=== PATIENT | male | born 1980 ===

== ENCOUNTER 2021-01-19 23:00 | Emergency (ER) | payer OTHER ==
[2021-01-19] MEDS ORDERED: SODIUM CHLORIDE 0.9% 1,000 ML IV STA (23:11)
[2021-01-19] MEDS ORDERED: ONDANSETRON 4 MG/2 ML VIAL IVP STA (23:11)
[2021-01-19] MEDS ORDERED: SODIUM CHLORIDE 0.9% 500 ML 500 ML IV STA (23:11)
[2021-01-19] MEDS ORDERED: PANTOPRAZOLE 40 MG/10 ML VIAL IVP STA (23:11)
[2021-01-19 23:28] VITALS: TEMP 98.7
--- NOTE | 2021-01-19 23:30 | ED ---
Recheck HPI - General Chief Complaint: Altered Mental Status Stated Complaint: Altered Mental Status Time Seen by Provider: 01/19/21 23:05 Source: EMS, RN notes reviewed, old records reviewed Mode of arrival: EMS Limitations: altered mental status, physical limitation - History of Present Illness Initial Comments: This is a 41-year-old male who is accepted in transfer. Patient presents as transfer from [facility] for evaluation regarding multifactorial respiratory failure. History for the most part was unknown although he has no history of needing dialysis in the past as well as liver failure. Patient is a polysubstance drug abuser per history with alcohol as well as IV drugs. Patient is intubated and sedated currently MD Complaint: abnormal lab, other (Respiratory failure) -: hour(s) Returns Today for: Called Because of Abnormal Lab/Test, other (Patient tr ansferred to higher care) Symptoms Since Prior Visit: no new symptoms Context: other (Patient was transferred to high level of care) Associated Symptoms: shortness of breath Treatments Prior to Arrival: IV/IO, urinary catheter in place - Related Data Allergies Allergy/AdvReac Type Severity Reaction Status Date / Time erythromycin base Allergy Anaphylaxis Verified 01/20/21 01:23 Review of Systems ROS Statement: Those systems with pertinent positive or pertinent negative responses have been documented in the HPI. ROS Other: All systems not noted in ROS Statement are negative. Past Medical History Past Medical History: Dialysis, Liver Disease, Renal Disease History of Any Multi-Drug Resistant Organisms: MRSA Past Surgical History: No Surgical Hx Reported Past Psychological History: No Psychological Hx Reported Smoking Status: Current every day smoker Past Alcohol Use History: Abuse Past Drug Use History: Heroin, IV Drug Use General Exam - General Exam Comments Initial Comments: Patient is intubated, tube placement Patient is sedated Limitations: altered mental status, physical limitation General appearance: obtunded, in distress, obese, other (jaundice) Head exam: Present: atraumatic, normocephalic, normal inspection Eye exam: Present: normal appearance. Absent: scleral icterus, conjunctival injection, periorbital swelling ENT exam: Present: normal exam, mucous membranes moist Neck exam: Present: normal inspection. Absent: tenderness, meningismus, lymp hadenopathy Respiratory exam: Present: rales, rhonchi, decreased breath sounds. Absent: respiratory distress, wheezes, stridor Cardiovascular Exam: Present: regular rate, normal rhythm, normal heart sounds. Absent: systolic murmur, diastolic murmur, rubs, gallop, clicks GI/Abdominal exam: Present: soft, normal bowel sounds. Absent: distended, tenderness, guarding, rebound, rigid Rectal exam: Present: deferred Extremities exam: Present: normal inspection, full ROM, normal capillary refill. Absent: pedal edema, joint swelling Back exam: Present: normal inspection Neurological exam: Present: alert, oriented X3, CN II-XII intact Skin exam: Present: warm, dry, intact, pallor, mottled. Absent: rash Course Vital Signs 01/19/21 01/19/21 01/19/21 23:19 23:38 23:40 Temperature 98.7 F Pulse Rate 78 58 L 23 L Respiratory 28 H 15 Rate Blood Pressure 61/40 72/35 62/35 O2 Sat by Pulse 91 L 72 L 71 L Oximetry 01/20/21 00:06 Temperature Pulse Rate 35 L Respiratory 22 Rate Blood Pressure 63/40 O2 Sat by Pulse Oximetry - Reevaluation(s) Reevaluation #1: 01/10/21 23:11 Medical record is reviewed Spoke with transferring physician regarding patient Reevaluation #2: 01/20/21 02:12 Patient has bradycardic cardiac arrest Initially suspect arrests is multifactorial severe acidosis, severe low blood sugar secondary to liver disease, elevated potassium was without prior labs prior to transfer all of which were treated during ACLS protocol without help or improvement Patient had respiratory acidosis and metabolic acidosis severe Reevaluation #3: 01/20/21 02:13 Patient reevaluated after ACLS protocol with no return of spontaneous circulation Patient is pronounced at 00:42 of 01/20/21 On examination patient's pupils are fixed and dilated no heart sounds are noted no respirations Ultrasound cardiac shows no cardiac activity Reevaluation #4: 01/20/21 02:14 Spoke with medical doctor patient will go to more Reevaluation #5: 01/20/21 02:14 I did speak with the patient's sister who is aware of the patient's passing Procedures - Central Line Placement Left Femoral Consent Obtained: emergent situation Patient Placed on Monitor/Pulse Ox: Yes Prep: mask, gown, gloves Central Line Prep: Povidone-Iodine 1% Ultrasound Used for Placement: Yes Central Line Lumen Inserted: triple Bloods Obtained for Lab: Yes Central Line Position: good blood return, all ports aspirated, flushed, capped Dressing Applied: Tegaderm Patient Tolerated Procedure: well Complications: none Medical Decision Making - Medical Decision Making 5-year-old male who did have cardiac arrest here in the emergency department was accepted as a transfer patient. Patient was intubated sedated and eventually had cardiac arrests. A she'll for close follow-up with no return of spontaneous circulation - Lab Data Result diagrams: 01/19/21 23:56 01/19/21 23:56 Lab Results 01/19/21 01/19/21 01/19/21 Range/Units 23:56 23:56 23:56 WBC 33.7 H (3.8-10.6) k/uL RBC 2.34 L (4.30-5.90) m/uL Hgb 9.4 L (13.0-17.5) gm/dL Hct 28.5 L (39.0-53.0) % MCV 121.7 H (80.0-100.0) fL MCH 40.0 H (25.0-35.0) pg MCHC 32.9 (31.0-37.0) g/dL RDW 13.8 (11.5-15.5) % Plt Count 242 (150-450) k/uL MPV 8.7 Hypochromasia Moderate Macrocytosis Marked A PT 26.3 H (9.0-12.0) sec INR 2.7 H (<1.2) APTT 48.9 H (22.0-30.0) sec Sample Site ABG pH (7.35-7.45) ABG pCO2 (35-45) mmHg ABG pO2 (83-108) mmHg ABG HCO3 (21-25) mmol/L ABG Total CO2 (19-24) mmol/L ABG O2 Saturation (94-97) % ABG Base Excess mmol/L Ap Test FiO2 % Sodium 133 L (137-145) mmol/L Potassium 6.4 H* (3.5-5.1) mmol/L Chloride 100 (98-107) mmol/L Carbon Dioxide 13 L (22-30) mmol/L Anion Gap 20 mmol/L BUN 60 H (9-20) mg/dL Creatinine 6.22 H (0.66-1.25) mg/dL Est GFR (CKD-EPI)AfAm 12 (>60 ml/min/1.73 sqM) Est GFR (CKD-EPI)NonAf 10 (>60 ml/min/1.73 sqM) Glucose 21 L* (74-99) mg/dL Calcium 8.6 (8.4-10.2) mg/dL Phosphorus 9.7 H* (2.5-4.5) mg/dL Magnesium 2.9 H (1.6-2.3) mg/dL Total Bilirubin 22.2 H* (0.2-1.3) mg/dL AST 375 H (17-59) U/L ALT 73 H (4-49) U/L Alkaline Phosphatase 173 H (38-126) U/L Creatine Kinase 97 (55-170) U/L Troponin I (0.000-0.034) ng/mL Total Protein 7.7 (6.3-8.2) g/dL Albumin 2.4 L (3.5-5.0) g/dL Lipase 534 H (23-300) U/L Serum Alcohol <10 mg/dL 01/19/21 01/20/21 Range/Units 23:56 00:15 WBC (3.8-10.6) k/uL RBC (4.30-5.90) m/uL Hgb (13.0-17.5) gm/dL Hct (39.0-53.0) % MCV (80.0-100.0) fL MCH (25.0-35.0) pg MCHC (31.0-37.0) g/dL RDW (11.5-15.5) % Plt Count (150-450) k/uL MPV Hypochromasia Macrocytosis PT (9.0-12.0) sec INR (<1.2) APTT (22.0-30.0) sec Sample Site Right Radial ABG pH 6.87 L* (7.35-7.45) ABG pCO2 75 H* (35-45) mmHg ABG pO2 24 L* (83-108) mmHg ABG HCO3 14 L (21-25) mmol/L ABG Total CO2 16 L (19-24) mmol/L ABG O2 Saturation 14.2 L (94-97) % ABG Base Excess -19.6 mmol/L Ap Test Yes FiO2 100 % Sodium (137-145) mmol/L Potassium (3.5-5.1) mmol/L Chloride (98-107) mmol/L Carbon Dioxide (22-30) mmol/L Anion Gap mmol/L BUN (9-20) mg/dL Creatinine (0.66-1.25) mg/dL Est GFR (CKD-EPI)AfAm (>60 ml/min/1.73 sqM) Est GFR (CKD-EPI)NonAf (>60 ml/min/1.73 sqM) Glucose (74-99) mg/dL Calcium (8.4-10.2) mg/dL Phosphorus (2.5-4.5) mg/dL Magnesium (1.6-2.3) mg/dL Total Bilirubin (0.2-1.3) mg/dL AST (17-59) U/L ALT (4-49) U/L Alkaline Phosphatase (38-126) U/L Creatine Kinase (55-170) U/L Troponin I <0.012 (0.000-0.034) ng/mL Total Protein (6.3-8.2) g/dL Albumin (3.5-5.0) g/dL Lipase (23-300) U/L Serum Alcohol mg/dL - Radiology Data Radiology results: report reviewed (Chest x-ray a positive ET tube placement was severe ARDS and CHF with pulmonary edema), image reviewed Critical Care Time Critical Care Time: Yes Total Critical Care Time: 95 Disposition Clinical Impression: Altered mental status, Hepatic encephalopathy, Uremic encephalopathy, Acute respiratory failure, Acidosis, Hyperkalemia, Polysubstance abuse, Alcoholic cirrhosis, Acute renal failure Disposition: Condition: Critical Is patient prescribed a controlled substance at d/c from ED?: No Referrals: None,Stated [Primary Care Provider] - 1-2 days Preliminary Cause of : Acidosis
[2021-01-19] MEDS ORDERED: DEXTROSE 50% SYRINGE 50 ML IVP STA (23:35)
[2021-01-19] MEDS ORDERED: INSULIN REGULAR 100 UNIT/ML VIAL IV ONE (23:35)
[2021-01-19] MEDS ORDERED: SODIUM BICARB 8.4% 50 ML SYR (1 MEQ/ML) IV STA (23:35)
[2021-01-19] MEDS ORDERED: CALCIUM CHLORIDE 100 MG/ML 10 ML SYRINGE IVP STA (23:35)
--- NOTE | 2021-01-19 23:41 | XR ---
EXAMINATION TYPE: XR chest 1V portable DATE OF EXAM: 01/19/2021 COMPARISON: NONE HISTORY: Respiratory failure TECHNIQUE: Single view FINDINGS: Exam limited by patient's size. As best as one can tell the endotracheal tube is 4 cm from the addy. There is poor inspiration. There is pulmonary interstitial edema and atelectasis in both lungs. There is elevated left and right diaphragm. There are chest leads. IMPRESSION: Moderate pulmonary edema could relate to heart failure or RDS. Endotracheal tube is in fa irly good position.
[2021-01-19] MEDS ORDERED: CALCIUM GLUCONATE 2 GM in SODIUM CHLORIDE 0.9% 100 ML IVPB ONE (23:45)
[2021-01-19] MEDS ORDERED: DEXTROSE 5% IN WATER 100 ML BAG IV ONE (23:59)
[2021-01-19] MEDS ORDERED: MAGNESIUM SULFATE SYG 4.06 MEQ/ML SYRINGE ONE (23:59)
[2021-01-19] MEDS ORDERED: AMIODARONE 50 MG/ML 3 ML VIAL IV ONE (23:59)
[2021-01-19] MEDS ORDERED: CALCIUM CHLORIDE 100 MG/ML 10 ML SYRINGE ONE (23:59)
[2021-01-19] MEDS ORDERED: EPINEPHrine 10 ML SYRINGE (0.1 MG/ML) ONE (23:59)
[2021-01-20] MEDS ORDERED: MIDAZOLAM HCL 50 MG in SODIUM CHLORIDE 0.9% 40 ML IV SCH ×2
[2021-01-20] MEDS ORDERED: SODIUM BICARB 8.4% 50 ML SYR (1 MEQ/ML) IV STA (00:15)
[2021-01-20] MEDS ORDERED: NOREPINEPHRINE 32 MG in SODIUM CHLORIDE 0.9% 218 ML IV ONE (00:15)
[2021-01-20 00:17] LABS: ABG Base Excess -19.6 mmol/L; ABG HCO3 14 mmol/L (21-25); ABG Oxygen Saturation 14.2 % (94-97); ABG TCO2 16 mmol/L (19-24); Allen Test Performed? Yes
[2021-01-20 00:43] LABS: HCT 28.5 % (39.0-53.0); HGB 9.4 gm/dL (13.0-17.5); Hypochromasia Moderate; MCHC 32.9 g/dL (31.0-37.0); MCV 121.7 fL (80.0-100.0); Macrocytosis Marked; Mean Platelet Volume 8.7; Platelet Count 242 k/uL (150-450); RBC 2.34 m/uL (4.30-5.90); RDW 13.8 % (11.5-15.5)
[2021-01-20 01:01] VITALS: BP 63/40; PULSE 35; RESP 22
[2021-01-20 01:04] LABS: INR 2.7 (<1.2); Partial Thromboplastin Time 48.9 sec (22.0-30.0); Prothrombin Time 26.3 sec (9.0-12.0)
[2021-01-20 01:12] LABS: AST 375 U/L (17-59); African American GFR (CKD) 12 (>60 ml/min/1.73 sqM); Albumin 2.4 g/dL (3.5-5.0); Alcohol <10 mg/dL; Alkaline Phosphatase 173 U/L (38-126); Anion Gap 20 mmol/L; Blood Urea Nitrogen 60 mg/dL (9-20); Calcium 8.6 mg/dL (8.4-10.2); Carbon Dioxide 13 mmol/L (22-30); Chloride 100 mmol/L (98-107); Creatine Kinase 97 U/L (55-170); Lipase 534 U/L (23-300); Magnesium 2.9 mg/dL (1.6-2.3); Non-African American GFR(CKD) 10 (>60 ml/min/1.73 sqM); Sodium 133 mmol/L (137-145); Total Protein 7.7 g/dL (6.3-8.2)
[2021-01-20 01:19] LABS: ALT 73 U/L (4-49)
[2021-01-20 01:21] LABS: Glucose 21 mg/dL (74-99); Phosphorus 9.7 mg/dL (2.5-4.5); Potassium 6.4 mmol/L (3.5-5.1); Total Bilirubin 22.2 mg/dL (0.2-1.3)
[2021-01-20 01:46] LABS: ABG PCO2 75 mmHg (35-45); ABG PH 6.87 (7.35-7.45)
[2021-01-20 01:47] LABS: ABG PO2 24 mmHg (83-108)
[2021-01-20 04:52] LABS: Band Neutrophils % 29 %; Eosinophils # (M) 0.65 k/uL (0-0.7); Lymphocytes # (M) 4.25 k/uL (1.0-4.8); Metamyelocytes # (M) 0.98 k/uL (0); Metamyelocytes % 3 %; Monocytes # (M) 0.65 k/uL (0-1.0); Myelocytes # (M) 0.33 k/uL (0); Myelocytes % 1 %; Neutrophils % (M) 52 %; Nucleated Red Blood Cells 3 /100 WBC (0-0); Polychromasia Present; Total Cells Counted 200; WBC 32.7 k/uL (3.8-10.6)
[2021-01-20 04:57] LABS: Anisocytosis (M) Present
[2021-01-20 04:58] LABS: Large Platelets Present
== END 2021-01-20 03:51 | disposition expired ==
LOC: EC 23:00
DX: I46.9 Cardiac arrest, cause unspecified (principal); K72.90 Hepatic failure, unspecified without coma; J96.00 Acute respiratory failure, unspecified whether with hypoxia or hypercapnia; R41.82 Altered mental status, unspecified; G93.49 Other encephalopathy; E87.2 Acidosis; E87.5 Hyperkalemia; F19.10 Other psychoactive substance abuse, uncomplicated; K70.30 Alcoholic cirrhosis of liver without ascites; N17.9 Acute kidney failure, unspecified; F17.200 Nicotine dependence, unspecified, uncomplicated; E66.9 Obesity, unspecified; Z99.2 Dependence on renal dialysis; Z68.43 Body mass index [BMI] 50.0-59.9, adult
CPT/HCPCS: 36415; 36600; 94002; 86900; 86901; 80053; 82550; 82805; 83605; 83690; 83735; 84100; 84484; 85025; 85610; 85730; 86850; 80320; 71045; 99291; 99292; 31500; 36556; 96365; 96375 ×5; J0282; J2405; J3475; J0171; J0610; C9113